=== PATIENT | female | born 1995 | race Caucasian/White ===

== ENCOUNTER 2019-01-19 20:40 | Inpatient (IN) | payer BC ==
[~2019-01-19] VITALS: Ht 170.2 cm; Wt 73.5 kg
[2019-01-19 21:56] VITALS: BP 113/86
[2019-01-19] MEDS ORDERED: PNV11TAB PO (22:00)
== END 2019-01-19 22:50 | disposition home or self-care (01) | DRG 833 ==
LOC: MLD 20:40
PROVIDERS: ADMIT Obstetrics & Gynecology; ATTEND Obstetrics & Gynecology
DX: O26.892 Other specified pregnancy related conditions, second trimester (principal); R10.9 Unspecified abdominal pain; Z3A.22 22 weeks gestation of pregnancy
CPT/HCPCS: 81000; G0378